=== PATIENT | male | born 1985 | race Caucasian/White ===

== ENCOUNTER → 2020-11-28 | Outpatient (CLI) | payer OTHER ==
[~2020-11-28] MED LIST: IOHEXOL 300 MG/ML 75 ML VIAL. IV ONE
--- NOTE | 2020-11-28 08:41 | RAD ---
EXAM: CT NECK SOFT TISSUES WITH CONTRAST. HISTORY: Dysphagia, neck pain, concern for Rudyard syndrome. TECHNIQUE: Computed tomography of the neck soft tissues was performed after the intravenous administr ation of iodinated contrast. One or more of the following individualized dose reduction techniques we re utilized for this examination: 1. Automated exposure control. 2. Adjustment of the mA and/or kV according to patient size. 3. Use of iterative reconstruction technique. COMPARISON: None. FINDINGS: Images of the lung apices reveal no acute abnormality. Bone windows reveal no suspicious le sions. The parotid glands and submandibular glands are unremarkable. 11 mm nodule within the left thyroid lo be is most likely benign. The styloid processes are normal in length. The stylohyoid ligaments are not ossified. The hyoid bone is unremarkable. A skin marker is placed at the site of concern overlying the right sternocleidomastoid muscle inferio rly. There is no underlying abnormality. There are no clear laryngeal or pharyngeal masses. There are no pathologically enlarged lymph nodes. IMPRESSION: 1. No cause for pain or dysphagia is identified. The stylohyoid ligaments appear normal. Recommend on going clinical follow-up of tenderness or palpable foci. 2. An 11 mm incidental left thyroid nodule is not likely related to patient symptoms and is most like ly benign. This could be further assessed sonographically if there is persistent concern. Electronically signed by: Bandar Wilson MD (11/28/2020 8:39 AM) [facility]
== END ==
LOC: CT 07:54
PROVIDERS: ATTEND Otolaryngology
DX: M54.2 Cervicalgia (principal)
CPT/HCPCS: 70491; Q9967